=== PATIENT | female | born 1965 | race Two or more races ===

== ENCOUNTER 2019-06-27 10:04 | Outpatient (CLI) | payer OTHER | END 2019-06-27 10:18 | disposition home or self-care (01) | LOC: LAB 10:04 | DX: E55.9 Vitamin D deficiency, unspecified (principal); E21.2 Other hyperparathyroidism; M85.88 Other specified disorders of bone density and structure, other site; E88.89 Other specified metabolic disorders; M81.8 Other osteoporosis without current pathological fracture; E56.1 Deficiency of vitamin K; E03.8 Other specified hypothyroidism ==